=== PATIENT | female | born 1955 | race Caucasian/White ===

== ENCOUNTER 2016-10-09 07:26 | Emergency (ER) | payer OTHER ==
[2016-10-09] MEDS ORDERED: PROPARACAINE 0.5% OPHTH DROPS 15 ML EACHEYE STA (07:40)
[2016-10-09] MEDS ORDERED: PROPARACAINE 0.5% OPHTH DROPS 15 ML ONE (07:42)
== END 2016-10-09 08:00 | disposition home or self-care (01) ==
DX: H10.31 Unspecified acute conjunctivitis, right eye (principal); H57.8 Other specified disorders of eye and adnexa; J44.9 Chronic obstructive pulmonary disease, unspecified; F17.200 Nicotine dependence, unspecified, uncomplicated
CPT/HCPCS: 99283; J3490

== ENCOUNTER 2016-10-20 14:46 | Outpatient (CLI) | payer OTHER | END 2016-10-20 14:47 | disposition home or self-care (01) | DX: Z00.00 Encounter for general adult medical examination without abnormal findings (principal); M27.2 Inflammatory conditions of jaws ==

== ENCOUNTER 2016-10-24 11:14 | Outpatient (CLI) | payer OTHER | END 2016-10-24 11:15 | disposition home or self-care (01) | DX: R76.0 Raised antibody titer (principal) ==

== ENCOUNTER 2016-10-26 14:01 | Outpatient (CLI) | payer OTHER | END 2016-10-26 14:02 | disposition home or self-care (01) | DX: R76.0 Raised antibody titer (principal) ==

== ENCOUNTER 2016-12-08 06:34 | Outpatient (CLI) | payer OTHER | END 2016-12-08 06:35 | disposition EMS.NT | LOC: EMS 06:34 | PROVIDERS: ATTEND Surgery | DX: Z04.1 Encounter for examination and observation following transport accident (principal); V47.5XXA Car driver injured in collision with fixed or stationary object in traffic accident, initial encounter; Y92.414 Local residential or business street as the place of occurrence of the external cause ==

== ENCOUNTER 2016-12-10 15:25 | Emergency (ER) | payer OTHER ==
[2016-12-10 15:35] VITALS: BP 103/74
[2016-12-10] MEDS ORDERED: IBUPROFEN 600 MG TABLET PO ONE (16:27)
[2016-12-10] MEDS: IBUPROFEN 600 MG TABLET PO STA (16:36)
--- NOTE | 2016-12-10 17:02 | XRAY Preliminary Report ---
Exam: XR Ribs w/PA Chest LT IMPRESSION: No rib fracture or pneumothorax. [facility] SITE ID: [id number]
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
== END 2016-12-10 17:49 | disposition home or self-care (01) ==
LOC: ED 15:25
DX: S20.212A Contusion of left front wall of thorax, initial encounter (principal); V47.5XXA Car driver injured in collision with fixed or stationary object in traffic accident, initial encounter; W22.11XA Striking against or struck by driver side automobile airbag, initial encounter; Y92.488 Other paved roadways as the place of occurrence of the external cause; J44.9 Chronic obstructive pulmonary disease, unspecified; F17.200 Nicotine dependence, unspecified, uncomplicated
CPT/HCPCS: 99283

== ENCOUNTER 2018-10-25 23:05 | Outpatient (CLI) | payer SELFPAY | END 2018-10-25 23:06 | disposition EMS.NT | LOC: EMS 23:05 | PROVIDERS: ATTEND Surgery ==